=== PATIENT | male | born 1980 ===

== ENCOUNTER 2023-07-19 11:37 | Emergency (ER) | payer OTHER, SELFPAY ==
[2023-07-19 12:20] VITALS: BP 132/75; PULSE 65; RESP 20; TEMP 36.5; O2SAT 99; BMI 23.7
--- NOTE | 2023-07-19 12:22 | ED_ITS ---
HPI - General Adult General Chief complaint: ETOH/Substance Use Stated complaint: Vomiting Time Seen by Provider: 07/19/23 13:25 Source: patient and family Mode of arrival: ambulatory Limitations: no limitations History of Present Illness HPI narrative: 42 yo male with longstanding hx of opiate abuse, crack cocaine and occ takes klonopins. He states he only uses 3 bags a day of heroin - sniffs it but then relays he was on suboxone 8/2 TID and methadone 50mg daily in the past and it did not curb his cravings. He notes he stopped using IVDA 2 years ago. He started to have n/v body aches and withdrawal symptoms last night. MD complaint: opiate withdrawal Onset (ago): day(s) (last night) Location: upper extremity and lower extremity Radiation: non-radiation Severity: moderate Quality: aching Pain Consistency: constant Relieving factors: none Exacerbating factors: movement Associated symptoms: loss of appetite, malaise, nausea/vomiting and other (myalgias) Treatments prior to arrival: none Related Data Allergies Allergy/AdvReac Type Severity Reaction Status Date / Time No Known Allergies Allergy Verified 07/19/23 12:22 Review of Systems 2 Review of Systems: Constitutional : No Fever, No Chills, pos Fatigue ENT/Mouth : No sore throat, No Rhinorrhea Eyes: No Eye Pain, No Swelling, No Redness Cardiovascular : No Chest Pain, No SOB, No Dyspnea on Exertion Respiratory : No Cough, No Sputum Gastrointestinal : pos Nausea, pos Vomiting, No Diarrhea, No abdominal Pain Genitourinary : No Dysuria, No Urinary Frequency, No Hematuria, Musculoskeletal : No joint pain, No Myalgias, No Joint Swelling Skin : No Skin Lesions, No rash Neuro : No Weakness, No Numbness, No Dizziness, positive Headache Psych : pos Anxiety/Panic, No Depression All other systems reviewed and are negative [facility] Past Medical History Attestation statement: The following information was validated with the patient. Medical History Polysubstance abuse Social History Social History (Updated 07/19/23 @ 13:46 by Onelia Samuels DO) Patient Tobacco Use Status: Tobacco use Unknown Smoked in Last 30 Days: No Use of substances other than those prescribed or required for medical reasons: Yes Substance Use Type: Crack/Cocaine and Heroin Advance Directives: No Advance Directives Information Provided: No Physical Exam ED Vital Signs: Vital Signs - 24 hr 07/19/23 12:20 07/19/23 15:26 07/19/23 17:56 Temperature 97.7 F 98.2 F 98.0 F Pulse Rate 65 53 54 Respiratory Rate 20 16 16 Blood Pressure 132/75 112/69 117/68 Pulse Oximetry 99 97 97 Oxygen Delivery Method Room Air Room Air Room Air 07/19/23 20:00 07/19/23 22:00 Temperature 98.0 F 98.5 F Pulse Rate 65 62 Respiratory Rate 16 16 Blood Pressure 140/78 H 117/75 Pulse Oximetry 98 98 Oxygen Delivery Method Room Air Room Air BMI result Body Mass Index 23.7 Appearance: Alert. Oriented X3. No acute distress. Anxious Eyes: Pupils equal, round and reactive to light. ENT: Pharynx mild dry MM. runny nose Neck: Normal inspection. Neck supple. CVS: Normal heart rate and rhythm. Pulses normal. Respiratory: No respiratory distress. Breath sounds normal. Abdomen: Soft and nontender. Skin: Skin clammy and dry. Normal skin color. Normal skin turgor. piloerection Extremities: No lower extremity edema. Neuro: Oriented X 3. No motor deficit. No sensory deficit. Course Course Course Narrative: RME: Patient presents to ED from opiate withdrawal symptoms. Patient usually smokes heroin and crack but has decreasing his intake over the past week to detox himself off of narcotics. Patient states abdominal pain nausea vomiting body aches sweating and chills. Charge nurse Raad informed of patient and will get a bed for patient Reevaluation(s) Reevaluation #1: physician observation started at 1413 until detox bed can be found Medications Administered Discontinued Medications Generic Name Dose Route Start Last Admin Trade Name Freq PRN Reason Stop Dose Admin Droperidol 1.25 mg 07/19/23 13:25 07/19/23 13:46 Droperidol 5 Mg/2 Ml Vial IVPUSH 07/19/23 13:26 1.25 mg ONCE ONE Administration Sodium Chloride 1,000 mls @ 999 mls/hr 07/19/23 13:30 07/19/23 19:03 Ns IV 07/19/23 14:30 Infused .Q1H1M ANDREA Infusion Lorazepam 1 mg 07/19/23 14:16 07/19/23 14:20 Lorazepam 2 Mg/Ml Vial IVPUSH 07/19/23 14:17 1 mg STAT STA Administration Lorazepam 2 mg 07/19/23 15:06 07/19/23 15:44 Lorazepam 1 Mg Tablet PO 07/19/23 15:07 2 mg ONCE ONE Administration Lorazepam 2 mg 07/19/23 20:49 07/19/23 21:10 Lorazepam 1 Mg Tablet PO 07/19/23 20:50 2 mg ONCE ONE Administration Methadone HCl 40 mg 07/19/23 13:41 07/19/23 14:05 Methadone Hcl 20 Mg/2 Ml Oral.Conc PO 07/19/23 13:42 40 mg ONCE ONE Administration Medical Decision Making Medical Decision Making MDM Narrative: 42 yo male with polysubstance abuse who reports only 3 bags of heroin a day but has a high tolerance for suboxone and methadone - no response in past to 8/2 TID and 50mg methadone. At this time labs, IV ativan/droperidol for symptoms, check qtc, start on methadone 40mg and refer to addiction medicine. Differential Diagnosis Differential Diagnoses: The differential diagnosis associated with the presentation includes opiate withdrawal, n/v Admission/Observation Consideration of admission/observation: Escalation of care including admission/observation considered will attempt to get to outpatient detox Consult Healthcare Provider Management of the patient was discussed with: Vinyl Top Installer (addiction medicine involved) Lab Data [facility] Lab Attestation statement: I reviewed the patient's lab results. 07/19/23 13:39 07/19/23 13:39 Labs: Lab Results 07/19/23 07/19/23 Range/Units 13:39 14:15 WBC 12.5 H (4.8-10.8) X10*3/uL RBC 5.52 (4.60-5.80) X10*6/uL Hgb 16.5 (14.0-18.0) g/dl Hct 49.3 (42.0-52.0) % MCV 89.3 (80.0-98.0) fL MCH 29.9 (27.0-33.0) pg MCHC 33.5 (31.0-36.0) g/dl RDW 12.4 (11.0-16.0) % Plt Count 170 (160-400) X10*3/uL MPV 11.7 (9.4-12.4) fL Immature Gran % (Auto) 0.3 (0.0-0.4) % Neut % (Auto) 88.6 H (45-73) % Lymph % (Auto) 8.1 L (20-40) % Lake % (Auto) 2.5 (2-11) % Eos % (Auto) 0.3 (0-4) % Baso % (Auto) 0.2 (0-2) % Lymph # (Auto) 1.0 L (1.2-4.9) X10*3/uL [place] # (Auto) 0.3 (0.1-1.2) X10*3/uL Eos # (Auto) 0.0 (0.0-0.4) X10*3/uL Baso # (Auto) 0.0 (0.0-0.2) X10*3/uL Abs Immat Gran (auto) 0.04 H (0.00-0.03) X10*3/uL Absolute Neuts (auto) 11.1 H (2.0-8.3) x10*3/uL Absolute Nucleated RBC 0.000 (0.0-0.012) X10*3/uL Nucleated RBC % (auto) 0.0 (0.0-0.2) /100WBC Sodium 142 (135-145) mmol/L Potassium 3.9 (3.3-5.1) mmol/L Chloride 108 (96-108) mmol/L Carbon Dioxide 25 (22-29) mmol/L Anion Gap 13 (12-20) BUN 15 (9-16) mg/dL Creatinine 0.99 (0.5-1.4) mg/dL Estim Creat Clear Calc 100.3 Estimated GFR > 60 Random Glucose 116 H (60-115) mg/dL Calcium 10.4 H (8.4-10.2) mg/dL Magnesium 2.1 (1.6-2.6) mg/dL Total Bilirubin 0.9 (0.0-1.0) mg/dL AST 18 (5-37) U/L ALT 16 (0-40) U/L Alkaline Phosphatase 69 (39-117) U/L Total Protein 9.1 H (6.5-8.0) g/dL Albumin 5.0 (3.5-5.0) g/dL Urine Opiates Screen Not Detected (Not Detect) Urine Fentanyl Screen POSITIVE H (Not Detect) Ur Barbiturates Screen Not Detected (Not Detect) Ur Phencyclidine Scrn Not Detected (Not Detect) Ur Amphetamines Screen Not Detected (Not Detect) U Benzodiazepines Scrn Not Detected (Not Detect) Urine Cocaine Screen POSITIVE H (Not Detect) U Marijuana (THC) Screen POSITIVE H (Not Detect) Ethyl Alcohol < 10 mg/dL Independent Interpretation I performed an independent interpretation of an: EKG Interpretation: Rate: 60 Rhythm: NSR [place]: normal Normal P waves. Normal CARLI. Normal QRS complex. ST T wave : no KLEVER, inverted V1- V2 qTC: 406 prior studies: no acute ischemia The study has been interpreted contemporaneously by me. . Independent Historian Clinical information obtained from an independent historian. History obtained from or confirmed by: Spouse External Record Review External record reviewed: Outpatient record Prescription Management I considered prescription management with: Other Critical Care Time Critical Care Time Critical Care Time: Yes Total Critical Care Time: 45 Attestation: IVF, IV ativan for anxiety - vomiting, discussion with family, referral to addiction medicine I attest to this time spent taking care of the patient Discharge Plan Discharge Clinical Impression: Opiate withdrawal, Polysubstance abuse Patient Disposition: Still a Patient Instructions: Polysubstance Abuse (ED), Opioid Withdrawal (ED), Opioid Use Disorder (ED) Additional Instructions: started on 40mg methadone at hospital for behavioral medicine 07/19/23 return for any worsening symptoms or concerns. Print Language: Cypriot
--- NOTE | 2023-07-19 13:25 | ECG_ITS ---
Test Reason : CHECK qtc Blood Pressure : / mmHG Vent. Rate : 060 BPM Atrial Rate : 060 BPM P-R Int : 148 ms QRS Dur : 082 ms QT Int : 406 ms P-R-T Axes : 070 028 070 degrees QTc Int : 406 ms Normal sinus rhythm Normal ECG No previous ECGs available Referred By: Onelia Samuels Electronically Signed By:Aurelio Morgan
[2023-07-19] MEDS: 0.9 % Sodium Chloride 1,000 ML 999 ML IV (13:45)
[2023-07-19] MEDS: droPERidol 5 MG/2 ML VIAL 1.25 MG IVPUSH (13:46)
[2023-07-19 13:49] LABS: MANUAL DIFF FLAG NO
[2023-07-19 13:57] LABS: Basophils Percent Auto 0.2 % (0-2); Eosinophils Percent Auto 0.3 % (0-4); Hematocrit 49.3 % (42.0-52.0); Hemoglobin 16.5 g/dl (14.0-18.0); Imm Gran Abs Auto 0.04 X10*3/uL (0.00-0.03); Imm Gran Pct Auto 0.3 % (0.0-0.4); Lymphocytes Percent Auto 8.1 % (20-40); Mean Corpuscular HGB Conc 33.5 g/dl (31.0-36.0); Mean Corpuscular Hemoglobin 29.9 pg (27.0-33.0); Mean Corpuscular Volume 89.3 fL (80.0-98.0); Mean Platelet Volume 11.7 fL (9.4-12.4); Monocytes Absolute Auto 0.3 X10*3/uL (0.1-1.2); Monocytes Percent Auto 2.5 % (2-11); Neutrophils Absolute Auto 11.1 x10*3/uL (2.0-8.3); Neutrophils Percent Auto 88.6 % (45-73); Platelet Count 170 X10*3/uL (160-400); Red Blood Count 5.52 X10*6/uL (4.60-5.80); Red Cell Distribution Width 12.4 % (11.0-16.0); White Blood Count 12.5 X10*3/uL (4.8-10.8)
[2023-07-19] MEDS: methADONE HCl 20 MG/2 ML ORAL.CONC 40 MG PO (14:05)
[2023-07-19 14:11] LABS: Alanine Aminotransferase 16 U/L (0-40); Alkaline Phosphatase 69 U/L (39-117); Anion Gap 13 (12-20); Aspartate Amino Transferase 18 U/L (5-37); Bilirubin Total 0.9 mg/dL (0.0-1.0); Blood Urea Nitrogen 15 mg/dL (9-16); Calcium 10.4 mg/dL (8.4-10.2); Carbon Dioxide 25 mmol/L (22-29); Chloride 108 mmol/L (96-108); Creatinine Clr Calc Pharmacy 100.3; Estimated Glomerular Filt Rate > 60; Ethanol < 10 mg/dL; Glucose Random 116 mg/dL (60-115); Magnesium 2.1 mg/dL (1.6-2.6); Potassium 3.9 mmol/L (3.3-5.1); Sodium 142 mmol/L (135-145); Total Protein 9.1 g/dL (6.5-8.0)
[2023-07-19] MEDS: LORazepam 2 MG/ML VIAL 1 MG IVPUSH (14:20)
--- NOTE | 2023-07-19 14:20 | MHC.RECOVRN ---
Met with pt in ED13 after consult placed to Addiction Medicine for ATS. Pt had presented to the ED reporting withdrawal from opioids and cocaine, has been decreasing use with a goal of abstinence. Pt reporting nausea, vomiting, diarrhea, body aches, diaphoresis, chills. Pt sitting in bed, awake, alert, easily engages in conversation, appears diaphoretic and uncomfortable. Pts , Chrystal, at bedside and present with pts permission. Pt reports heroin/fentanyl use, 3-5 bags, IN, daily. Last use this morning, 2 bags. Pt also reports cocaine use, INH, $10-$40 daily. Last use this morning, $20. Pt reports hx MOUD. Has been on Suboxone (8 mg TID) as well as methadone (50 mg). Pt denies effectiveness with both medications, reports he had cravings as well as withdrawal symptoms. Pt is interested in ATS as well as methadone to address withdrawal. Pt agreeable to any ATS facility. Pt would like to continue with residential treatment after ATS. Pt denies questions or concerns for t/w. [facility] reports bed availability, referral sent.
[2023-07-19 14:32] LABS: Amphetamine Screen Urine Not Detected (Not Detect); Barbiturates, Urine Not Detected (Not Detect); Benzodiazepines Screen Urine Not Detected (Not Detect); Cannabinoid Screen Urine POSITIVE (Not Detect); Cocaine Screen Urine POSITIVE (Not Detect); Fentanyl, urine POSITIVE (Not Detect); Opiate Screen Urine Not Detected (Not Detect); Phencyclidine Screen Urine Not Detected (Not Detect)
[2023-07-19 15:26] VITALS: BP 112/69; PULSE 53; RESP 16; TEMP 36.8; O2SAT 97
[2023-07-19] MEDS: LORazepam 1 MG TABLET 2 MG PO ×2 (15:44→21:10)
--- NOTE | 2023-07-19 16:01 | MHC.RECOVRN ---
Addendum entered by Bobbi Hopkins 07/19/23 16:17: Provider aware. Original Note: Spoke with [facility], referral not yet reviewed. Awaiting review by nursing.
[2023-07-19 17:56] VITALS: BP 117/68; PULSE 54; RESP 16; TEMP 36.7; O2SAT 97
--- NOTE | 2023-07-19 19:28 | PC.NURSE ---
pt resting comfortably with eyes closed. nad. resp even and unlabored. call barrow within reach.
[2023-07-19 20:00] VITALS: BP 140/78; PULSE 65; RESP 16; TEMP 36.7; O2SAT 98
[2023-07-19 20:45] VITALS: PULSE 65
--- NOTE | 2023-07-19 20:51 | PC.NURSE ---
pt now awake ambulatory with steady gait. pt reports i need ativan. COWS score 2. Dr. Samuels aware. security notified for need for change advisor. at bedside. nad. pt denies si/hi. call barrow within reach.
--- NOTE | 2023-07-19 21:11 | PC.NURSE ---
iv removed. pt changed over by security. pt medicated per jun. . call barrow within reach.
[2023-07-19 22:00] VITALS: BP 117/75; PULSE 62; RESP 16; TEMP 36.9; O2SAT 98
--- NOTE | 2023-07-20 03:05 | PC.NURSE ---
RICHARWA 5, pt asking for Lorazepam. VO per Dr. Cortez, Lorazepam 2mg PO.
[2023-07-20] MEDS: LORazepam 1 MG TABLET 2 MG PO (03:10)
[2023-07-20 05:07] VITALS: BP 130/79; PULSE 52; RESP 16; TEMP 36.6; O2SAT 97
--- NOTE | 2023-07-20 05:30 | PC.NURSE ---
pt resting comfortably with eyes closed. resp even and unlabored. nad. call barrow within reach.
--- NOTE | 2023-07-20 08:36 | PC.NURSE ---
pt sleeping and easily woken, breakfast given and pt went back to sleep, states he doesn't need anything
[2023-07-20 09:53] VITALS: BP 155/80; PULSE 68; RESP 17; O2SAT 98
[2023-07-20] MEDS: methADONE HCl 20 MG/2 ML ORAL.CONC 30 MG PO (09:53)
--- NOTE | 2023-07-20 10:03 | P.PNADD_ITS ---
Subjective Subjective Date of Service: 07/20/23 Reason For Visit: Vomiting Interim History: Patient seen in follow up In ED awaiting ATS admission overnight--referred by advertising dispatch clerks supervisor on 07/18 in the afternoon and referral under review at end of the day awaiting determination. This morning still no follow up from [facility] ATS [facility] with several male beds available Patient seen in room 13 of main ED. Laying in bed, asleep, but wakes easily. Breakfast at bedside, partially eaten. Still interested in placement at ATS. Requesting methadone and ativan. Reporting body aches, and anxiety. Chart reviewed, uneventful evening. Review of Systems Medical Review of Systems: unchanged Review of Systems Constitutional: Reports as per HPI Mental Status Exam Mental Status Exam Patient Appearance: Appropriate Level of Consciousness: Awake and Appropriate Patient Behavior: Appropriate and Guarded Mood Description: Calm Affect Description: Calm Diagnostics Vital Signs (24Hr): Vital Signs - 24 hr 07/19/23 12:20 07/19/23 15:26 07/19/23 17:56 Temperature 97.7 F 98.2 F 98.0 F Pulse Rate 65 53 54 Respiratory Rate 20 16 16 Blood Pressure 132/75 112/69 117/68 Pulse Oximetry 99 97 97 Oxygen Delivery Method Room Air Room Air Room Air 07/19/23 20:00 07/19/23 22:00 07/20/23 05:07 Temperature 98.0 F 98.5 F 97.8 F Pulse Rate 65 62 52 Respiratory Rate 16 16 16 Blood Pressure 140/78 H 117/75 130/79 Pulse Oximetry 98 98 97 Oxygen Delivery Method Room Air Room Air Room Air 07/20/23 09:53 Temperature Pulse Rate 68 Respiratory Rate 17 Blood Pressure 155/80 H Pulse Oximetry 98 Oxygen Delivery Method BMI result Body Mass Index 23.7 Labs 07/19/23 13:39 07/19/23 13:39 Labs: Laboratory Results - last 48 hr 07/19/23 07/19/23 13:39 14:15 WBC 12.5 H RBC 5.52 Hgb 16.5 Hct 49.3 MCV 89.3 MCH 29.9 MCHC 33.5 RDW 12.4 Plt Count 170 MPV 11.7 Immature Gran % (Auto) 0.3 Neut % (Auto) 88.6 H Lymph % (Auto) 8.1 L [place] % (Auto) 2.5 Eos % (Auto) 0.3 Baso % (Auto) 0.2 Lymph # (Auto) 1.0 L [place] # (Auto) 0.3 Eos # (Auto) 0.0 Baso # (Auto) 0.0 Abs Immat Gran (auto) 0.04 H Absolute Neuts (auto) 11.1 H Absolute Nucleated RBC 0.000 Nucleated RBC % (auto) 0.0 Sodium 142 Potassium 3.9 Chloride 108 Carbon Dioxide 25 Anion Gap 13 BUN 15 Creatinine 0.99 Estim Creat Clear Calc 100.3 Estimated GFR > 60 Random Glucose 116 H Calcium 10.4 H Magnesium 2.1 Total Bilirubin 0.9 AST 18 ALT 16 Alkaline Phosphatase 69 Total Protein 9.1 H Albumin 5.0 Urine Opiates Screen Not Detected Urine Fentanyl Screen POSITIVE H Ur Barbiturates Screen Not Detected Ur Phencyclidine Scrn Not Detected Ur Amphetamines Screen Not Detected U Benzodiazepines Scrn Not Detected Urine Cocaine Screen POSITIVE H U Marijuana (THC) Screen POSITIVE H Ethyl Alcohol < 10 Medications Allergies Allergies Allergy/AdvReac Type Severity Reaction Status Date / Time No Known Allergies Allergy Verified 07/19/23 12:22 Assessment & Plan Assessment & Plan (1) Opioid use disorder: Status: Acute Code(s): F11.90 - Opioid use, unspecified, uncomplicated Assessment and Plan: * methadone 30mg administered * referral placed with [facility]--they will reach out to patient and patient can present as walk in as well--patient advised of this and agreeable * last dose letter provided by ED RN Total time managing care of this patient today __25__ minutes.
[2023-07-20 10:31] VITALS: BP 155/80; PULSE 68; RESP 17; TEMP 36.6; O2SAT 98
== END 2023-07-20 10:33 | disposition home or self-care (01) ==
PROVIDERS: Physician Assistant; Emergency Provider Emergency Medicine
DX: F11.23 Opioid dependence with withdrawal (principal); F19.10 Other psychoactive substance abuse, uncomplicated
CPT/HCPCS: 36415; 80053; 80307; 83735; 85025; 93005; 96361; 96374; 96375; 99285; J1790; J2060

== ENCOUNTER → 2023-07-19 13:08 | Outpatient (BNV) | payer OTHER, SELFPAY | PROVIDERS: Emergency Provider Emergency Medicine; Visit Provider Nurse Practitioner Psychiatric/Mental Health | DX: F11.90 Opioid use, unspecified, uncomplicated (principal) | CPT/HCPCS: 99282; G2213 ==

== ENCOUNTER → 2023-07-19 13:25 | Outpatient (BNV) | payer OTHER, SELFPAY | PROVIDERS: Emergency Provider Emergency Medicine; Visit Provider Internal Medicine Cardiovascular Disease | DX: I45.81 Long QT syndrome (principal) | CPT/HCPCS: 93010 ==